=== PATIENT | male | born 1985 | race Two or more races ===

== ENCOUNTER 2020-01-01 13:54 | Outpatient (REF) | payer OTHER, SELFPAY | END 2020-01-01 13:55 | disposition home or self-care (01) | LOC: HO.LAB 13:54 | PROVIDERS: Visit Provider Internal Medicine | DX: Z20.828 Contact with and (suspected) exposure to other viral communicable diseases (principal) | CPT/HCPCS: 87635 ==

== ENCOUNTER 2020-03-18 15:09 | Outpatient (REF) | payer OTHER, SELFPAY | END 2020-03-18 15:10 | disposition home or self-care (01) | LOC: HO.LAB 15:09 | PROVIDERS: Visit Provider Internal Medicine | DX: Z20.822 Contact with and (suspected) exposure to COVID-19 (principal) | CPT/HCPCS: 36415; C9803; U0003 ==